=== PATIENT | female | born 1990 | race Caucasian/White ===

== ENCOUNTER 2016-12-14 18:52 | Emergency (ER) | payer BC ==
[2016-12-14 19:07] VITALS: BP 137/74
[2016-12-14] MEDS ORDERED: GI Cocktail Oral Solution 30 ML PO ONE (19:34)
[2016-12-14 20:12] LABS: CHLORIDE,CL 103 mmol/L (101-111); SODIUM,NA 138 mmol/L (135-145)
--- NOTE | 2016-12-14 20:29 | EDM.PDOC ---
ED HPI GI/ABDOMINAL - General Chief Complaint: Chest Pain Stated Complaint: CHEST PAIN Time Seen by Provider: 12/14/16 19:25 Source of Information: Reports: Patient History Limitations: Reports: No limitations - History of Present Illness INITIAL COMMENTS - FREE TEXT/NARRATIVE: c/o right lower breast tenderness and epigastric discomfort. Notes hx acid reflux. Prescribed 2 weeks of Omeprazole and sx resolved has been increasing past week with pressure , denies burning. No SOB. LMP one week ago. Quality: Reports: fullness, stabbing. Denies: radiating - Related Data Allergies/ADRs: Allergies Allergy/AdvReac Type Severity Reaction Status Date / Time No Known Allergies Allergy Verified 12/14/16 19:19 Home Meds: Home Meds . [No Known Home Meds] 08/16/15 [History] Past Medical History - Past Health History Medical/Surgical History: Denies Medical/Surgical History - Past Surgical History Female Surgical History: Reports: Cervical conization Social & Family History - Tobacco Use Smoking Status *Q: Never Smoker Second Hand Smoke Exposure: Yes - Caffeine Use Caffeine Use: Reports: None - Alcohol Use Days Per Week of Alcohol Use: 1 Number of Drinks Per Day: 3 Total Drinks Per Week: 3 Date of Last Drink: 12/13/16 - Recreational Drug Use Recreational Drug Use: No ED ROS GENERAL - Review of Systems Review Of Systems: See Below Constitutional: Reports: no symptoms HEENT: Reports: No symptoms Respiratory: Reports: no symptoms Cardiovascular: Reports: No symptoms. Denies: Dyspnea on exertion, Edema, Lightheadedness GI/Abdominal: Reports: Abdominal pain (epigastric) Musculoskeletal: Reports: no symptoms Neurological: Reports: no symptoms Psychiatric: Reports: Anxiety ED EXAM, GI/ABD - Physical Exam Exam: See Below Exam Limited By: No limitations General Appearance: alert, anxious Eyes: bilateral: EOMI Ears: normal external exam Nose: normal inspection Throat/Mouth: Normal inspection Head: atraumatic, normocephalic Neck: normal inspection, non-tender Respiratory/Chest: no respiratory distress, lungs clear, normal breath sounds, other (mild tenderness below right breast at braline, few fibroxystic type densities at underwire line. ) Cardiovascular: normal peripheral pulses, regular rate, rhythm GI/Abdominal: normal bowel sounds, soft, tenderness (mid epigastric). No: Donnelly's sign Back Exam: full range of motion Extremities: normal inspection Neurological: alert, oriented Skin Exam: Warm, Dry, Intact, Normal color Course - Vital Signs Last Recorded V/S: Last Vital Signs Temp 96.2 F 12/14/16 19:02 Pulse 93 12/14/16 19:02 Resp 17 12/14/16 19:02 BP 137/74 12/14/16 19:02 Pulse Ox 100 12/14/16 19:02 - Orders/Labs/Meds Labs: Laboratory Tests 12/14/16 12/14/16 12/14/16 Range/Units 19:07 19:07 19:45 WBC 6.2 (5.0-10.0) 10^3/uL RBC 4.16 L (4.2-5.4) 10^6/uL Hgb 12.8 (12.0-16.0) g/dL Hct 38.3 (37.0-47.0) % MCV 92.1 (80-100) fL MCH 30.8 (27.0-34.0) pg MCHC 33.4 (33.0-35.0) g/dL Plt Count 237 (150-450) 10^3/uL Neut % (Auto) 48.0 (42.2-75.2) % Lymph % (Auto) 41.0 (20.5-50.1) % [place] % (Auto) 9.2 H (2-8) % Eos % (Auto) 1.3 (1.0-3.0) % Baso % (Auto) 0.5 (0.0-1.0) % Sodium (135-145) mmol/L Potassium (3.6-5.0) mmol/L Chloride (101-111) mmol/L Carbon Dioxide (21.0-31.0) mmol/L Anion Gap BUN (7-18) mg/dL Creatinine (0.6-1.3) mg/dL Est Cr Clr Drug Dosing mL/min Estimated GFR (MDRD) BUN/Creatinine Ratio Glucose (74-105) mg/dL Calcium (8.4-10.2) mg/dl Total Bilirubin (0.2-1.0) mg/dL AST (10-42) IU/L ALT (10-60) IU/L Alkaline Phosphatase (42-121) IU/L Total Protein (6.7-8.2) g/dl Albumin (3.2-5.5) g/dl Globulin Albumin/Globulin Ratio Amylase (28-100) U/L Lipase (22-51) U/L Urine Color Yellow (YELLOW) Urine Appearance Turbid (CLEAR) Urine pH 7.0 (5.0-9.0) Ur Specific [place] 1.025 (1.005-1.030) Urine Protein Negative (NEGATIVE) Urine Glucose (UA) Negative (NEGATIVE) Urine Ketones Negative (NEGATIVE) Urine Occult Blood Negative (NEGATIVE) Urine Nitrite Negative (NEGATIVE) Urine Bilirubin Negative (NEGATIVE) Urine Urobilinogen 1.0 (0.2-1.0) mg/dL Ur Leukocyte Esterase Negative (NEGATIVE) Urine RBC 0-5 /HPF Urine WBC 0-5 (0-5/HPF) /HPF Ur Epithelial Cells Few /HPF Amorphous Sediment Moderate H (0/HPF) /HPF Urine Bacteria Moderate H (0-FEW/HPF) /HPF Urine HCG, Qual Negative 12/14/16 Range/Units 19:45 WBC (5.0-10.0) 10^3/uL RBC (4.2-5.4) 10^6/uL Hgb (12.0-16.0) g/dL Hct (37.0-47.0) % MCV (80-100) fL MCH (27.0-34.0) pg MCHC (33.0-35.0) g/dL Plt Count (150-450) 10^3/uL Neut % (Auto) (42.2-75.2) % Lymph % (Auto) (20.5-50.1) % [place] % (Auto) (2-8) % Eos % (Auto) (1.0-3.0) % Baso % (Auto) (0.0-1.0) % Sodium 138 (135-145) mmol/L Potassium 3.6 (3.6-5.0) mmol/L Chloride 103 (101-111) mmol/L Carbon Dioxide 26.0 (21.0-31.0) mmol/L Anion Gap 12.6 BUN 11 (7-18) mg/dL Creatinine 0.6 (0.6-1.3) mg/dL Est Cr Clr Drug Dosing 134.59 mL/min Estimated GFR (MDRD) > 60 BUN/Creatinine Ratio 18.33 Glucose 103 (74-105) mg/dL Calcium 9.5 (8.4-10.2) mg/dl Total Bilirubin 0.4 (0.2-1.0) mg/dL AST 20 (10-42) IU/L ALT 13 (10-60) IU/L Alkaline Phosphatase 66 (42-121) IU/L Total Protein 6.9 (6.7-8.2) g/dl Albumin 4.0 (3.2-5.5) g/dl Globulin 2.9 Albumin/Globulin Ratio 1.38 Amylase 54 (28-100) U/L Lipase 31 (22-51) U/L Urine Color (YELLOW) Urine Appearance (CLEAR) Urine pH (5.0-9.0) Ur Specific [place] (1.005-1.030) Urine Protein (NEGATIVE) Urine Glucose (UA) (NEGATIVE) Urine Ketones (NEGATIVE) Urine Occult Blood (NEGATIVE) Urine Nitrite (NEGATIVE) Urine Bilirubin (NEGATIVE) Urine Urobilinogen (0.2-1.0) mg/dL Ur Leukocyte Esterase (NEGATIVE) Urine RBC /HPF Urine WBC (0-5/HPF) /HPF Ur Epithelial Cells /HPF Amorphous Sediment (0/HPF) /HPF Urine Bacteria (0-FEW/HPF) /HPF Urine HCG, Qual Meds: Medications Discontinued Medications Generic Name Dose Route Start Last Admin Trade Name Pepper PRN Reason Stop Dose Admin Al Hydroxide/Mg Hydroxide 30 ml 12/14/16 19:34 12/14/16 19:39 Gi Cocktail PO 12/14/16 19:35 30 ml ONETIME ONE Administration Departure - Departure Time of Disposition: 20:30 Disposition: Home, Self-Care 01 Condition: good Clinical Impression: Acid reflux Qualifiers: Esophagitis presence: esophagitis presence not specified Qualified Code(s): K21.9 - Gastro-esophageal reflux disease without esophagitis Instructions: Gastroesophageal Reflux Disease, Adult, [id number] Referrals: PCP,None [Primary Care Provider] - Forms: ED Department Discharge Additional Instructions: Resume omeprazole twice daily for one week then once daily clinic follow up on Monday if continued symptoms Tylenol for discomfort avoid ibuprofen bland diet avoid caffeine, alcohol and energy drinks
== END 2016-12-14 20:24 | disposition home or self-care (01) ==
LOC: DL.ED 18:52
DX: K21.9 Gastro-esophageal reflux disease without esophagitis (principal)
CPT/HCPCS: 36415; 80053; 81001; 81025; 82150; 83690; 85025; 99283; A9270

== ENCOUNTER 2017-10-26 17:53 | Emergency (ER) | payer BC ==
[2017-10-26 18:05] VITALS: BP 112/72
--- NOTE | 2017-10-26 18:52 | EDM.PDOC ---
Scribed by Amaris Lu 10/26/17 [id number] for Thomas Randhawa MD ED HPI GENERAL MEDICAL PROBLEM - General Chief Complaint: ENT Problem Stated Complaint: EAR PAIN [id number] Time Seen by Provider: 10/26/17 18:13 Source of Information: Reports: Patient, RN, RN Notes Reviewed History Limitations: Reports: No Limitations - History of Present Illness INITIAL COMMENTS - FREE TEXT/NARRATIVE: Patient complains of right ear pain x1 week. Yesterday the pain began in left ear as well, but not as bad as the right. Denies fever. Admits to headache at frontal head and to sinus pressure with post nasal drip. 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: Neurological History: Reports: Headaches, Chronic, Migraines - Past Surgical History GI Surgical History: Reports: Cholecystectomy Female Surgical History: Reports: Cervical Conization Social & Family History - Family History Family Medical History: Noncontributory - Tobacco Use Smoking Status *Q: Never Smoker Second Hand Smoke Exposure: Yes - Caffeine Use Caffeine Use: Reports: None - Alcohol Use Days Per Week of Alcohol Use: 1 Number of Drinks Per Day: 3 Total Drinks Per Week: 3 - Recreational Drug Use Recreational Drug Use: No ED ROS ENT - Review of Systems Review Of Systems: ROS reveals no pertinent complaints other than HPI. ED EXAM, ENT - Physical Exam Exam: See Below Exam Limited By: No Limitations General Appearance: Alert, WD/WN, No Apparent Distress Ears: Other (bilateral TMs with bulging with clear fluid. No erythema. No drainage with perforation right then left. ) Nose: Other (frontal and maxillary sinus/facial tenderness. Nasal mucosa inlamed with injected turbinates.) Mouth/Throat: Normal Oropharynx (except post nasal drip. ) Head: Atraumatic Neck: Other (no nuchal rigidity.) Respiratory/Chest: No Respiratory Distress, Lungs Clear, Normal Breath Sounds, No Accessory Muscle Use, Chest Non-Tender Cardiovascular: Normal Peripheral Pulses, Regular Rate, Rhythm, No Edema, No Gallop, No JVD, No Murmur, No Rub Neurological: Alert, Oriented, CN II-XII Intact, Normal Cognition, Normal Gait, Normal Reflexes, No Motor/Sensory Deficits Psychiatric: Normal Affect, Normal Mood Skin: Warm, Dry, Intact, Normal Color, No Rash Course - Vital Signs Last Recorded V/S: Last Vital Signs Temp 35.9 C 10/26/17 17:59 Pulse 80 10/26/17 17:59 Resp 14 10/26/17 17:59 BP 112/72 10/26/17 17:59 Pulse Ox Departure - Departure Time of Disposition: 18:17 Disposition: Home, Self-Care 01 Condition: Good Clinical Impression: Sinus headache Barotitis media Qualifiers: Encounter type: initial encounter Qualified Code(s): T70.0XXA - Otitic barotrauma, initial encounter Sinusitis Qualifiers: Sinusitis location: unspecified location Chronicity: acute Recurrence: non- recurrent Qualified Code(s): J01.90 - Acute sinusitis, unspecified - Discharge Information Instructions: Barotitis Media, Sinusitis, Adult, [id number], Sinus Headache, [id number] Referrals: Sendy Cuevas PA-C [Primary Care Provider] - Forms: ED Department Discharge Additional Instructions: RX: Augmentin 875mg. RX: Prednisone 20mg. RX: Theresa 5mg/325mg. * Do not drive while under the influence of this medication. Follow up in clinic in 3 to 4 days if not improving. I have read and agree with the documentation that has been completed regarding this visit. By signing this record, I attest that the documentation was completed in my physical presence and is an accurate record of the encounter.
== END 2017-10-26 18:30 | disposition home or self-care (01) ==
LOC: DL.ED 17:53
DX: T70.0XXA Otitic barotrauma, initial encounter (principal); J01.90 Acute sinusitis, unspecified; Z79.899 Other long term (current) drug therapy
CPT/HCPCS: 99283

== ENCOUNTER 2018-04-19 20:38 | Emergency (ER) | payer BC ==
[2018-04-19 21:02] VITALS: BP 122/69
[2018-04-19] MEDS ORDERED: Sodium Chloride 0.9% 10 ML Syringe FLUSH PRN (21:14)
[2018-04-19 21:38] LABS: ANION GAP 10.7; CHLORIDE,CL 104 mmol/L (101-111); SODIUM,NA 136 mmol/L (135-145)
[2018-04-19] MEDS ORDERED: GI Cocktail Oral Solution 30 ML PO ONE (22:33)
--- NOTE | 2018-04-19 23:24 | EDM.PDOC ---
ED HPI GENERAL MEDICAL PROBLEM - General Chief Complaint: Chest Pain Stated Complaint: [id number] CHEST PAINS SOB Time Seen by Provider: 04/19/18 22:27 Source of Information: Reports: Patient, Family, RN, RN Notes Reviewed History Limitations: Reports: No Limitations - History of Present Illness INITIAL COMMENTS - FREE TEXT/NARRATIVE: Pt to ER with c/o midsternal chest pain that wraps around into the lateral chest. She states this began 3-4 weeks ago and has gotten worse today. She states she does a lot of heavy lifting at work. SHe admits to increased belching recently. Denies cardiac history, denies SOB, N/V. Onset: Gradual Left Chest Pain Score (Numeric/FACES): 5 - Related Data Allergies Allergy/AdvReac Type Severity Reaction Status Date / Time No Known Allergies Allergy Verified 04/19/18 21:35 Home Meds: Home Meds Norgestimate-Ethinyl Estradiol [Previfem Tablet] 1 tab PO DAILY 03/27/17 [ History] Past Medical History - Past Health History Medical/Surgical History: Denies Medical/Surgical History Gastrointestinal History: Reports: GERD [employer] History: Reports: Neurological History: Reports: Headaches, Chronic, Migraines - Past Surgical History GI Surgical History: Reports: Cholecystectomy Female Surgical History: Reports: Cervical Conization Social & Family History - Family History Family Medical History: Noncontributory - Tobacco Use Smoking Status *Q: Never Smoker Second Hand Smoke Exposure: No - Caffeine Use Caffeine Use: Reports: Soda - Recreational Drug Use Recreational Drug Use: No ED ROS GENERAL - Review of Systems Review Of Systems: ROS reveals no pertinent complaints other than HPI. ED EXAM, GENERAL - Physical Exam Exam: See Below Exam Limited By: No Limitations General Appearance: Alert, WD/WN, No Apparent Distress Eye Exam: Bilateral Eye: EOMI, Normal Inspection Ears: Normal External Exam, Hearing Grossly Normal Nose: Normal Inspection Throat/Mouth: Normal Inspection, Normal Voice, No Airway Compromise Head: Atraumatic, Normocephalic Neck: Normal Inspection Respiratory/Chest: No Respiratory Distress, Lungs Clear, Normal Breath Sounds, No Accessory Muscle Use. No: Chest Non-Tender (chest tender to touch in areas) Cardiovascular: Normal Peripheral Pulses, Regular Rate, Rhythm, No Edema, No Gallop, No JVD, No Murmur, No Rub Peripheral Pulses: 2+: Radial (L), Radial (R) GI/Abdominal: Normal Bowel Sounds, Soft, Non-Tender (Female) Exam: Deferred Rectal (Female) Exam: Deferred Back Exam: Normal Inspection, Full Range of Motion Extremities: Normal Inspection, Normal Range of Motion, Non-Tender, No Pedal Edema, Normal Capillary Refill Neurological: Alert, Oriented, CN II-XII Intact, Normal Cognition, Normal Gait, Normal Reflexes, No Motor/Sensory Deficits Psychiatric: Normal Affect, Normal Mood Skin Exam: Warm, Dry, Intact, Normal Color, No Rash Lymphatic: No Adenopathy EKG INTERPRETATION EKG Date: 04/21/18 Time: 20:55 Rhythm: NSR Rate (Beats/Min): 72 [place]: Normal P-Wave: Present QRS: Normal ST-T: Normal QT: Normal Comparison: NA - No Prior EKG Course - Vital Signs Last Recorded V/S: Last Vital Signs Temp 98.0 F 04/19/18 20:59 Pulse 68 04/19/18 20:59 Resp 16 04/19/18 20:59 BP 122/69 04/19/18 20:59 Pulse Ox 100 04/19/18 20:59 - Orders/Labs/Meds Labs: Laboratory Tests 04/19/18 04/19/18 04/19/18 Range/Units 21:15 21:15 21:20 WBC 7.2 (5.0-10.0) 10^3/uL RBC 3.74 L (4.2-5.4) 10^6/uL Hgb 11.9 L (12.0-16.0) g/dL Hct 34.9 L (37.0-47.0) % MCV 93.3 (80-100) fL MCH 31.8 (27.0-34.0) pg MCHC 34.1 (33.0-35.0) g/dL Plt Count 259 (150-450) 10^3/uL Neut % (Auto) 56.3 (42.2-75.2) % Lymph % (Auto) 31.7 (20.5-50.1) % [place] % (Auto) 10.6 H (2-8) % Eos % (Auto) 1.1 (1.0-3.0) % Baso % (Auto) 0.3 (0.0-1.0) % Sodium 136 (135-145) mmol/L Potassium 3.7 (3.6-5.0) mmol/L Chloride 104 (101-111) mmol/L Carbon Dioxide 25.0 (21.0-31.0) mmol/L Anion Gap 10.7 BUN 8 (7-18) mg/dL Creatinine 0.7 (0.6-1.3) mg/dL Est Cr Clr Drug Dosing 122.09 mL/min Estimated GFR (MDRD) > 60 BUN/Creatinine Ratio 11.42 Glucose TNP Calcium 9.4 (8.4-10.2) mg/dl Total Bilirubin 0.7 (0.2-1.0) mg/dL AST 24 (10-42) IU/L ALT 17 (10-60) IU/L Alkaline Phosphatase 49 (42-121) IU/L Troponin I < 0.02 (0.00-0.02) ng/ml Total Protein 6.7 (6.7-8.2) g/dl Albumin 4.1 (3.2-5.5) g/dl Globulin 2.6 Albumin/Globulin Ratio 1.58 Urine Color (YELLOW) Urine Appearance (CLEAR) Urine pH (5.0-9.0) Ur Specific [place] (1.005-1.030) Urine Protein (NEGATIVE) Urine Glucose (UA) (NEGATIVE) Urine Ketones (NEGATIVE) Urine Occult Blood (NEGATIVE) Urine Nitrite (NEGATIVE) Urine Bilirubin (NEGATIVE) Urine Urobilinogen (0.2-1.0) mg/dL Ur Leukocyte Esterase (NEGATIVE) Urine RBC /HPF Urine WBC (0-5/HPF) /HPF Ur Epithelial Cells /HPF Urine Bacteria (0-FEW/HPF) /HPF Urine HCG, Qual Negative 04/19/18 Range/Units 21:21 WBC (5.0-10.0) 10^3/uL RBC (4.2-5.4) 10^6/uL Hgb (12.0-16.0) g/dL Hct (37.0-47.0) % MCV (80-100) fL MCH (27.0-34.0) pg MCHC (33.0-35.0) g/dL Plt Count (150-450) 10^3/uL Neut % (Auto) (42.2-75.2) % Lymph % (Auto) (20.5-50.1) % [place] % (Auto) (2-8) % Eos % (Auto) (1.0-3.0) % Baso % (Auto) (0.0-1.0) % Sodium (135-145) mmol/L Potassium (3.6-5.0) mmol/L Chloride (101-111) mmol/L Carbon Dioxide (21.0-31.0) mmol/L Anion Gap BUN (7-18) mg/dL Creatinine (0.6-1.3) mg/dL Est Cr Clr Drug Dosing mL/min Estimated GFR (MDRD) BUN/Creatinine Ratio Glucose Calcium (8.4-10.2) mg/dl Total Bilirubin (0.2-1.0) mg/dL AST (10-42) IU/L ALT (10-60) IU/L Alkaline Phosphatase (42-121) IU/L Troponin I (0.00-0.02) ng/ml Total Protein (6.7-8.2) g/dl Albumin (3.2-5.5) g/dl Globulin Albumin/Globulin Ratio Urine Color Yellow (YELLOW) Urine Appearance Clear (CLEAR) Urine pH 6.0 (5.0-9.0) Ur Specific [place] 1.025 (1.005-1.030) Urine Protein Negative (NEGATIVE) Urine Glucose (UA) Negative (NEGATIVE) Urine Ketones Trace H (NEGATIVE) Urine Occult Blood Negative (NEGATIVE) Urine Nitrite Negative (NEGATIVE) Urine Bilirubin Negative (NEGATIVE) Urine Urobilinogen 0.2 (0.2-1.0) mg/dL Ur Leukocyte Esterase Negative (NEGATIVE) Urine RBC Not seen /HPF Urine WBC 0-5 (0-5/HPF) /HPF Ur Epithelial Cells Few /HPF Urine Bacteria Rare (0-FEW/HPF) /HPF Urine HCG, Qual Meds: Medications Discontinued Medications Generic Name Dose Route Start Last Admin Trade Name Freq PRN Reason Stop Dose Admin Al Hydroxide/Mg Hydroxide 30 ml 04/19/18 22:33 04/19/18 22:39 Gi Cocktail PO 04/19/18 22:34 30 ml ONETIME ONE Administration Sodium Chloride 10 ml 04/19/18 21:14 04/19/18 21:22 Saline Flush FLUSH 10 ml ASDIRECTED PRN Administration Keep Vein Open - Radiology Interpretation Free Text/Narrative:: Chest xray: No acute cardiopulmonary process See rad report Departure - Departure Time of Disposition: 23:22 Disposition: Home, Self-Care 01 Condition: Fair Clinical Impression: Nonspecific chest pain Instructions: Food Choices for Gastroesophageal Reflux Disease, Adult, Easy-to- Read, Food Choices for Gastroesophageal Reflux Disease, Adult, Chest Wall Pain, [id number], Nonspecific Chest Pain, [id number], Gastroesophageal Reflux Disease, Adult, [id number] Referrals: Maria R Rangel G[employer]ER [Ordering Only Provider] - Forms: ED Department Discharge Additional Instructions: Try Gas X over the counter May use Tylenol and/or ibuprofen as directed for pain Follow up with your primary care facility
== END 2018-04-19 23:31 | disposition home or self-care (01) ==
LOC: DL.ED 20:38
DX: R07.9 Chest pain, unspecified (principal); Z79.899 Other long term (current) drug therapy
CPT/HCPCS: 36415; 71046; 80053; 81001; 81025; 84484; 85025; 93005; 99285; A9270; J7050

== ENCOUNTER 2018-06-09 12:16 | Emergency (ER) | payer BC ==
[2018-06-09 14:09] LABS: ANION GAP 7.6; CHLORIDE,CL 106 mmol/L (101-111); SODIUM,NA 137 mmol/L (135-145)
--- NOTE | 2018-06-09 15:35 | EDM.PDOC ---
Scribed by Amaris Lu 06/09/18 1535 for Amadeo Raygoza PA ED HPI GENERAL MEDICAL PROBLEM - General Chief Complaint: Abdominal Pain Stated Complaint: CRAMPING AND BLOATING Time Seen by Provider: 06/09/18 13:28 Source of Information: Reports: Patient, RN, RN Notes Reviewed History Limitations: Reports: No Limitations - History of Present Illness INITIAL COMMENTS - FREE TEXT/NARRATIVE: Patient is a 28-year-old female with lower abdominal pain and cramping. She has frequent urination. This started on but getting worse. Two weeks until her menstrual cycle. She has had previous UTIs with different symptoms. 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 Pelvic Pain Score (Numeric/FACES): 5 - Related Data Allergies Allergy/AdvReac Type Severity Reaction Status Date / Time No Known Allergies Allergy Verified 04/19/18 21:35 Home Meds: Home Meds Norgestimate-Ethinyl Estradiol [Previfem Tablet] 1 tab PO DAILY 03/27/17 [ History] Esomeprazole [NexIUM] 40 mg PO DAILY 06/09/18 [History] Past Medical History - Past Health History Medical/Surgical History: Denies Medical/Surgical History Gastrointestinal History: Reports: 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 ED EXAM, RENAL/ - Physical Exam Exam: See Below Exam Limited By: No Limitations General Appearance: Alert, WD/WN, No Apparent Distress Eye Exam: Bilateral Eye: EOMI, Normal Inspection, PERRL Ears: Normal External Exam, Normal Canal, Hearing Grossly Normal, Normal TMs Nose: Normal Inspection, Normal Mucosa, No Blood Throat/Mouth: Normal Inspection, Normal Lips, Normal Teeth, Normal Gums, Normal Oropharynx, Normal Voice, No Airway Compromise Head: Atraumatic, Normocephalic Neck: Normal Inspection, Supple, Non-Tender, Full Range of Motion Respiratory/Chest: No Respiratory Distress, Lungs Clear, Normal Breath Sounds, No Accessory Muscle Use, Chest Non-Tender Cardiovascular: Normal Peripheral Pulses, Regular Rate, Rhythm, No Edema, No Gallop, No JVD, No Murmur, No Rub GI/Abdominal: Other (lower abdominal tenderness to palpation. Increased right lower quadrant, periumbilical) (Female) Exam: Deferred Rectal (Female) Exam: Deferred Back Exam: Normal Inspection, Full Range of Motion, NT Extremities: Normal Inspection, Normal Range of Motion, Non-Tender, Normal Capillary Refill, No Pedal Edema Neurological: Alert, Oriented, CN II-XII Intact, Normal Cognition, Normal Gait, Normal Reflexes, No Motor/Sensory Deficits Psychiatric: Normal Affect, Normal Mood Skin Exam: Warm, Dry, Intact, Normal Color, No Rash Lymphatic: No Adenopathy Course - Vital Signs Last Recorded V/S: Last Vital Signs Temp 36.7 C 06/09/18 12:44 Pulse 74 06/09/18 12:44 Resp 16 06/09/18 12:44 BP 109/62 06/09/18 12:44 Pulse Ox 100 06/09/18 12:44 - Orders/Labs/Meds Orders: Active Orders 24 hr Category Date Time Status Pelvis Non OB Comp [US] Urgent Exams 06/09/18 14:46 Ordered HCG QUALITATIVE,URINE [URCHEM] Stat Lab 06/09/18 12:38 Ordered Labs: Laboratory Tests 06/09/18 06/09/18 06/09/18 Range/Units 12:38 12:38 13:44 WBC 5.5 (5.0-10.0) 10^3/uL RBC 3.93 L (4.2-5.4) 10^6/uL Hgb 12.3 (12.0-16.0) g/dL Hct 36.7 L (37.0-47.0) % MCV 93.4 (80-100) fL MCH 31.3 (27.0-34.0) pg MCHC 33.5 (33.0-35.0) g/dL Plt Count 216 (150-450) 10^3/uL Neut % (Auto) 57.2 (42.2-75.2) % Lymph % (Auto) 30.1 (20.5-50.1) % Darke % (Auto) 10.9 H (2-8) % Eos % (Auto) 1.4 (1.0-3.0) % Baso % (Auto) 0.4 (0.0-1.0) % Sodium (135-145) mmol/L Potassium (3.6-5.0) mmol/L Chloride (101-111) mmol/L Carbon Dioxide (21.0-31.0) mmol/L Anion Gap BUN (7-18) mg/dL Creatinine (0.6-1.3) mg/dL Est Cr Clr Drug Dosing mL/min Estimated GFR (MDRD) BUN/Creatinine Ratio Glucose (74-105) mg/dL Calcium (8.4-10.2) mg/dl Total Bilirubin (0.2-1.0) mg/dL AST (10-42) IU/L ALT (10-60) IU/L Alkaline Phosphatase (42-121) IU/L Total Protein (6.7-8.2) g/dl Albumin (3.2-5.5) g/dl Globulin Albumin/Globulin Ratio Urine Color Yellow (YELLOW) Urine Appearance Cloudy (CLEAR) Urine pH 8.5 (5.0-9.0) Ur Specific [place] 1.015 (1.005-1.030) Urine Protein Negative (NEGATIVE) Urine Glucose (UA) Negative (NEGATIVE) Urine Ketones Negative (NEGATIVE) Urine Occult Blood Negative (NEGATIVE) Urine Nitrite Negative (NEGATIVE) Urine Bilirubin Negative (NEGATIVE) Urine Urobilinogen 0.2 (0.2-1.0) mg/dL Ur Leukocyte Esterase Trace H (NEGATIVE) Urine RBC Not seen /HPF Urine WBC 0-5 (0-5/HPF) /HPF Ur Epithelial Cells Moderate H /HPF Amorphous Sediment Many H (0/HPF) /HPF Urine Bacteria Few (0-FEW/HPF) /HPF Urine Mucus Rare /LPF Urine HCG, Qual Negative 06/09/18 Range/Units 13:44 WBC (5.0-10.0) 10^3/uL RBC (4.2-5.4) 10^6/uL Hgb (12.0-16.0) g/dL Hct (37.0-47.0) % MCV (80-100) fL MCH (27.0-34.0) pg MCHC (33.0-35.0) g/dL Plt Count (150-450) 10^3/uL Neut % (Auto) (42.2-75.2) % Lymph % (Auto) (20.5-50.1) % Darke % (Auto) (2-8) % Eos % (Auto) (1.0-3.0) % Baso % (Auto) (0.0-1.0) % Sodium 137 (135-145) mmol/L Potassium 3.6 (3.6-5.0) mmol/L Chloride 106 (101-111) mmol/L Carbon Dioxide 27.0 (21.0-31.0) mmol/L Anion Gap 7.6 BUN 9 (7-18) mg/dL Creatinine 0.6 (0.6-1.3) mg/dL Est Cr Clr Drug Dosing 147.53 mL/min Estimated GFR (MDRD) > 60 BUN/Creatinine Ratio 15.00 Glucose 85 (74-105) mg/dL Calcium 8.7 (8.4-10.2) mg/dl Total Bilirubin 0.8 (0.2-1.0) mg/dL AST 20 (10-42) IU/L ALT 14 (10-60) IU/L Alkaline Phosphatase 47 (42-121) IU/L Total Protein 6.6 L (6.7-8.2) g/dl Albumin 3.9 (3.2-5.5) g/dl Globulin 2.7 Albumin/Globulin Ratio 1.44 Urine Color (YELLOW) Urine Appearance (CLEAR) Urine pH (5.0-9.0) Ur Specific [place] (1.005-1.030) Urine Protein (NEGATIVE) Urine Glucose (UA) (NEGATIVE) Urine Ketones (NEGATIVE) Urine Occult Blood (NEGATIVE) Urine Nitrite (NEGATIVE) Urine Bilirubin (NEGATIVE) Urine Urobilinogen (0.2-1.0) mg/dL Ur Leukocyte Esterase (NEGATIVE) Urine RBC /HPF Urine WBC (0-5/HPF) /HPF Ur Epithelial Cells /HPF Amorphous Sediment (0/HPF) /HPF Urine Bacteria (0-FEW/HPF) /HPF Urine Mucus /LPF Urine HCG, Qual Departure - Departure Time of Disposition: 15:31 Disposition: Home, Self-Care 01 Condition: Fair Clinical Impression: Right ovarian cyst - Discharge Information *PRESCRIPTION DRUG MONITORING PROGRAM REVIEWED*: Not Applicable *COPY OF PRESCRIPTION DRUG MONITORING REPORT IN PATIENT BINTA: Not Applicable Instructions: Ovarian Cyst, [id number] Forms: ED Department Discharge Care Plan Goals: The patient was advised of the examination, lab and ultrasound results during the visit. The patient was discharged with a script for [place] () to take 1 by mouth every 6 hours as needed for pain. If the patient has any additional symptoms or concerns, the patient should follow-up with her primary care facility or return to the emergency department. - My Orders Last 24 Hours: My Active Orders 06/09/18 12:38 HCG QUALITATIVE,URINE [URCHEM] Stat 06/09/18 14:46 Pelvis Non OB Comp [US] Urgent - Assessment/Plan Last 24 Hours: My Active Orders 06/09/18 12:38 HCG QUALITATIVE,URINE [URCHEM] Stat 06/09/18 14:46 Pelvis Non OB Comp [US] Urgent I have read and agree with the documentation that has been completed regarding this visit. By signing this record, I attest that the documentation was completed in my physical presence and is an accurate record of the encounter.
[2018-06-09 15:46] VITALS: BP 119/65
== END 2018-06-09 15:44 | disposition home or self-care (01) ==
LOC: DL.ED 12:16
DX: N83.201 Unspecified ovarian cyst, right side (principal)
CPT/HCPCS: 36415; 76830; 80053; 81001; 81025; 85025; 99284

== ENCOUNTER 2020-12-18 07:31 | Emergency (ER) | payer BC ==
[2020-12-18 07:54] VITALS: BP 99/62; PULSE 102
--- NOTE | 2020-12-18 08:04 | EDM.PDOC ---
ED HPI GENERAL MEDICAL PROBLEM - General Chief Complaint: Headache Stated Complaint: MIGRAINE Time Seen by Provider: 12/18/20 08:04 Source of Information: Reports: Patient, Old Records, RN, RN Notes Reviewed History Limitations: Reports: No Limitations - History of Present Illness INITIAL COMMENTS - FREE TEXT/NARRATIVE: Pt presents to ER with c/o three days duration of a generalized headache. Pt came to the hospital requesting a MRI of her brain in radiology, where it was explained to her that an order from a physician it required. Pt then checked into the ER to obtain her MRI. The triage nurse explained that non-emergent MRI's are not obtained through the emergency department. Pt states her PCP is not available, and she cannot get in with her clinic until next week, so she would like to be evaluated in the ER. Pt reports 3 days of constant generalized pounding headache, with sharp jabs, and "tightness" from the neck to the forehead. Nothing alleviates or aggravates the headache/pain. Pt rates the current headache pain 7/10. She reports a three year history of right sided migraines, treated with Imitrex. She has never had brain imaging, or a neurology evaluation, stating that her nurse practitioner did not feel that further studies or referral were necessary in her case. The pt is anxious that something more ominous could be the cause of her headaches, and is not comfortable that a more thorough work up has not been completed. She denies nausea, vomiting, or photophobia. Denies blurry vision, or any visual changes. Denies mastoid pain, swelling, redness, or increased warmth. Denies ear pain, hearing change, or drainage. Denies Hx of head injury or neck injury. Denies slurred speech, or difficulties with speech or swallowing. Denies seizures, or altered/loss of sense of taste or smell. Onset Date: 12/15/20 Duration: Constant Location: Reports: Head, Neck Quality: Reports: Ache, Pressure, Sharp, Stabbing, Other (Pounding) Severity: Severe Associated Symptoms: Reports: No Other Symptoms Head Pain Score (Numeric/FACES): 7 - Related Data Allergies Allergy/AdvReac Type Severity Reaction Status Date / Time No Known Allergies Allergy Verified 12/18/20 07:55 Home Meds: Home Meds hydrOXYzine HCL [Atarax] 50 mg PO ASDIRECTED PRN 09/02/20 [History] SUMAtriptan [Imitrex] 100 mg PO ASDIRECTED 12/18/20 [History] Past Medical History - Past Health History Medical/Surgical History: Denies Medical/Surgical History Gastrointestinal History: Reports: 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: Neurological History: Reports: Headaches, Chronic, Migraines - Past Surgical History GI Surgical History: Reports: Cholecystectomy Female Surgical History: Reports: Cervical Conization Social & Family History - Family History Family Medical History: No Pertinent Family History - Tobacco Use Tobacco Use Status *Q: Never Tobacco User - Caffeine Use Caffeine Use: Reports: Other - Recreational Drug Use Recreational Drug Use: No - Living Situation & Occupation Living situation: Reports: , with Family Occupation: Employed ED ROS GENERAL - Review of Systems Review Of Systems: Comprehensive ROS is negative, except as noted in HPI. - Physical Exam Exam: See Below Exam Limited By: No Limitations General Appearance: Alert, WD/WN, No Apparent Distress, Anxious Eye Exam: Bilateral Eye: EOMI, Normal Inspection, PERRL Ears: Normal External Exam, Normal Canal, Hearing Grossly Normal, Normal TMs Nose: Normal Inspection, Normal Mucosa, No Blood Throat/Mouth: Normal Inspection, Normal Lips, Normal Teeth, Normal Gums, Normal Oropharynx, Normal Voice, No Airway Compromise Head Exam: Atraumatic, Normocephalic Neck: Normal Inspection, Supple, Non-Tender, Full Range of Motion. No: Carotid Bruit, Lymphadenopathy (L), Lymphadenopathy (R) Respiratory/Chest: No Respiratory Distress, Lungs Clear, Normal Breath Sounds, No Accessory Muscle Use, Chest Non-Tender Cardiovascular: Normal Peripheral Pulses, Regular Rate, Rhythm, No Edema, No Gallop, No JVD, No Murmur, No Rub Neuro Exam (Abbreviated): Alert, Oriented, CN II-XII Intact, Normal Cognition, Normal Gait, No Motor/Sensory Deficits Back Exam: Normal Inspection Extremities: Normal Inspection Psychiatric: Normal Affect, Anxious Skin Exam: Warm, Dry, Intact, Normal Color, No Rash Course - Vital Signs Last Recorded V/S: Last Vital Signs Temp 98.7 F 12/18/20 07:50 Pulse 102 H 12/18/20 07:50 Resp 14 12/18/20 07:50 BP 99/62 12/18/20 07:50 Pulse Ox 99 12/18/20 07:50 - Radiology Interpretation Free Text/Narrative:: [facility] Final Radiology Report Call: [phone] assistance Online chat: [email or web address] Name: SAMUEL KEATING Age: 30Years F Date: 12/18/2020 SSN: -- : [id number] Study: CT HEAD WO CONT Requesting Physician: VEDA PRASAD Images: 141 Addl Studies: Provided Clinical History: Headache w/increasing freq. and intensity Contrast: Without Contrast Medium: Contrast Amount: Contrast Method: Page 1 of 2 PROCEDURE INFORMATION: Exam: CT Head Without Contrast Exam date and time: 12/18/2020 9:03 AM Age: 30 years old Clinical indication: Pain; Headache not specified; Additional info: Headache w/increasing freq. And intensity TECHNIQUE: Imaging protocol: Computed tomography of the head without contrast. Radiation optimization: All CT scans at this facility use at least one of these dose optimization techniques: automated exposure control; mA and/or kV adjustment per patient size (includes targeted exams where dose is matched to clinical indication); or iterative reconstruction. COMPARISON: No relevant prior studies available. FINDINGS: Brain: Normal. No hemorrhage. Unremarkable white matter. No mass effect. Cerebral ventricles: No ventriculomegaly. Bones/joints: Unremarkable. No acute fracture. Paranasal sinuses: Visualized sinuses are unremarkable. No fluid levels. Mastoid air cells: Visualized mastoid air cells are well aerated. Soft tissues: Unremarkable. IMPRESSION: No CT evidence for acute intracranial abnormality. Thank you for allowing us to participate in the care of your patient. Dictated and Authenticated by: Zeeshan Yoo MD SAMUEL KEATING | Final Radiology Report CONFIDENTIALITY STATEMENT This report is intended only for use by the referring physician, and only in accordance with law. If you received this in error, call [phone]. Page 2 of 2 12/18/2020 9:27 AM Central Time ([place] & [place]) [facility] [place] [facility] Final Radiology Report Call: [phone] assistance Online chat: [email or web address] Name: SAMUEL KEATING Age: 30Years F Date: 12/18/2020 SSN: -- : [id number] Study: CT MAX FACIAL SINUS WO CONT Requesting Physician: VEDA PRASAD Images: 215 Addl Studies: Provided Clinical History: Headache w/increasing freq. and intensity Contrast: Without Contrast Medium: Contrast Amount: Contrast Method: Page 1 of 2 PROCEDURE INFORMATION: Exam: CT Maxillofacial Without Contrast Exam date and time: 12/18/2020 9:03 AM Age: 30 years old Clinical indication: Pain; Headache; Type not specified; Additional info: Headache w/increasing freq. And intensity TECHNIQUE: Imaging protocol: Computed tomography images of the face without contrast. Radiation optimization: All CT scans at this facility use at least one of these dose optimization techniques: automated exposure control; mA and/or kV adjustment per patient size (includes targeted exams where dose is matched to clinical indication); or iterative reconstruction. COMPARISON: No relevant prior studies available. FINDINGS: Orbital cavity: The globes appear grossly intact, and no definite intraorbital hematoma is identified. Bones/joints: The temporomandibular joints are normally aligned. No acute fracture is identified. The orbital floors and lamina papyracea are intact. The temporomandibular joints are normally aligned. There is mild rightward nasal septal deviation. Paranasal sinuses: Mild chronic mucosal disease involves the bilateral maxillary and left sphenoid sinuses. The paranasal sinuses and air cells are otherwise clear, without air- fluid level. The ostiomeatal units are patent. Mastoid air cells: The mastoid air cells are clear. The mastoid air cells are clear. Soft tissues: The soft tissues appear grossly unremarkable. IMPRESSION: Mild chronic paranasal sinus disease as described. SAMUEL KEATING | Final Radiology Report CONFIDENTIALITY STATEMENT This report is intended only for use by the referring physician, and only in accordance with law. If you received this in error, call [phone]. Page 2 of 2 Thank you for allowing us to participate in the care of your patient. Dictated and Authenticated by: Zeeshan Yoo MD 12/18/2020 9:30 AM Central Time ([place] & [place]) Departure - Departure Time of Disposition: 09:32 Disposition: Home, Self-Care 01 Condition: Good Clinical Impression: Acute intractable headache Qualifiers: Headache type: unspecified Qualified Code(s): R51.9 - Headache, unspecified Chronic sinusitis Qualifiers: Sinusitis location: ethmoidal Qualified Code(s): J32.2 - Chronic ethmoidal sinusitis - Discharge Information *PRESCRIPTION DRUG MONITORING PROGRAM REVIEWED*: No *COPY OF PRESCRIPTION DRUG MONITORING REPORT IN PATIENT BINTA: No Instructions: General Headache Without Cause, Sinusitis, Adult Forms: ED Department Discharge Additional Instructions: Rx: Doxycycline 100mg Rx: Dexamethasone 4mg Rx: Cyclobenzaprine 10mg Rx: Hydrocodone APAP 5mg/325mg Follow up in clinic next week as planned. Ask your doctor about a referral for headache evaluation if needed. Sepsis Event Note (ED) - Evaluation Sepsis Screening Result: No Definite Risk - Focused Exam Vital Signs: Vital Signs Temp Pulse Resp BP Pulse Ox 12/18/20 07:50 98.7 F 102 H 14 99/62 99
--- NOTE | 2020-12-18 09:27 | CT ---
PROCEDURE INFORMATION: Exam: CT Head Without Contrast Exam date and time: 12/18/2020 9:03 AM Age: 30 years old Clinical indication: Pain; Headache not specified; Additional info: Headache w/increasing freq. And intensity TECHNIQUE: Imaging protocol: Computed tomography of the head without contrast. Radiation optimization: All CT scans at this facility use at least one of these dose optimization techniques: automated exposure control; mA and/or kV adjustment per patient size (includes targeted exams where dose is matched to clinical indication); or iterative reconstruction. COMPARISON: No relevant prior studies available. FINDINGS: Brain: Normal. No hemorrhage. Unremarkable white matter. No mass effect. Cerebral ventricles: No ventriculomegaly. Bones/joints: Unremarkable. No acute fracture. Paranasal sinuses: Visualized sinuses are unremarkable. No fluid levels. Mastoid air cells: Visualized mastoid air cells are well aerated. Soft tissues: Unremarkable. IMPRESSION: No CT evidence for acute intracranial abnormality.
--- NOTE | 2020-12-18 09:31 | CT ---
PROCEDURE INFORMATION: Exam: CT Maxillofacial Without Contrast Exam date and time: 12/18/2020 9:03 AM Age: 30 years old Clinical indication: Pain; Headache; Type not specified; Additional info: Headache w/increasing freq. And intensity TECHNIQUE: Imaging protocol: Computed tomography images of the face without contrast. Radiation optimization: All CT scans at this facility use at least one of these dose optimization techniques: automated exposure control; mA and/or kV adjustment per patient size (includes targeted exams where dose is matched to clinical indication); or iterative reconstruction. COMPARISON: No relevant prior studies available. FINDINGS: Orbital cavity: The globes appear grossly intact, and no definite intraorbital hematoma is identified. Bones/joints: The temporomandibular joints are normally aligned. No acute fracture is identified. The orbital floors and lamina papyracea are intact. The temporomandibular joints are normally aligned. There is mild rightward nasal septal deviation. Paranasal sinuses: Mild chronic mucosal disease involves the bilateral maxillary and left sphenoid sinuses. The paranasal sinuses and air cells are otherwise clear, without air-fluid level. The ostiomeatal units are patent. Mastoid air cells: The mastoid air cells are clear. The mastoid air cells are clear. Soft tissues: The soft tissues appear grossly unremarkable. IMPRESSION: Mild chronic paranasal sinus disease as described.
== END 2020-12-18 09:52 | disposition home or self-care (01) ==
LOC: DL.ED 07:31
DX: J32.2 Chronic ethmoidal sinusitis (principal)
CPT/HCPCS: 70450; 70486; 99283; 99284-25

== ENCOUNTER 2021-03-05 13:04 | Emergency (ER) | payer BC ==
[2021-03-05 13:34] VITALS: BP 115/83; PULSE 75
[2021-03-05 14:40] LABS: ANION GAP 12.6 mEq/L (7-13); CHLORIDE,CL 103 mmol/L (98-107); SODIUM,NA 139 mmol/L (136-145)
--- NOTE | 2021-03-05 15:05 | CR ---
EXAMINATION: Chest 1V Frontal SEX: Female AGE: 31 years CLINICAL HISTORY: 31-year-old female chest pain. INDICATION: No acute new cardiopulmonary abnormality identified since 02 September 2020 comparison film. External panel monitor leads. Normal cardiac silhouette (size and configuration). No new pulmonary vascular congestion, cephalization of flow, alveolar edema or pleural effusion. No new parenchymal lung mass lesion or hilar lymphadenopathy. No alveolar infiltrate, atelectasis/collapse, or peripheral "groundglass" interstitial lung densities. No pneumothorax or pneumomediastinum. Midline tracheal bronchial airway unremarkable. No free subdiaphragmatic air. CONCLUSION: Negative exam. INTERPRETATION: 1. CONCLUSION:
[2021-03-05] MEDS ORDERED: GI Cocktail Oral Solution 30 ML PO ONE (15:12)
--- NOTE | 2021-03-05 15:36 | EDM.PDOC ---
ED HPI GENERAL MEDICAL PROBLEM - General Chief Complaint: Chest Pain Stated Complaint: [id number] SEVERE CHEST AND BACK PAIN - Related Data Allergies Allergy/AdvReac Type Severity Reaction Status Date / Time No Known Allergies Allergy Verified 03/05/21 13:38 Home Meds: Home Meds hydrOXYzine HCL [Atarax] 50 mg PO ASDIRECTED PRN 09/02/20 [History] SUMAtriptan [Imitrex] 100 mg PO ASDIRECTED 12/18/20 [History] Propranolol [Inderal LA] 60 mg PO DAILY 03/05/21 [History] Past Medical History - Past Health History Medical/Surgical History: Denies Medical/Surgical History Gastrointestinal History: Reports: 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: Neurological History: Reports: Headaches, Chronic, Migraines - Past Surgical History GI Surgical History: Reports: Cholecystectomy Female Surgical History: Reports: Cervical Conization Social & Family History - Family History Family Medical History: No Pertinent Family History - Tobacco Use Tobacco Use Status *Q: Never Tobacco User - Caffeine Use Caffeine Use: Reports: Other - Recreational Drug Use Recreational Drug Use: No - Living Situation & Occupation Living situation: Reports: , with Family Occupation: Employed Course - Vital Signs Last Recorded V/S: Last Vital Signs Temp 97.8 F 03/05/21 13:32 Pulse 75 03/05/21 13:32 Resp 16 03/05/21 13:32 BP 115/83 03/05/21 13:32 Pulse Ox 99 03/05/21 13:32 - Orders/Labs/Meds Orders: Active Orders 24 hr Category Date Time Status EKG Documentation Completion [RC] STAT Care 03/05/21 13:59 Active Labs: Laboratory Tests 03/05/21 03/05/21 03/05/21 Range/Units 13:11 13:11 14:08 WBC 7.0 (5.0-10.0) 10^3/uL RBC 3.98 L (4.2-5.4) 10^6/uL Hgb 12.7 (12.0-16.0) g/dL Hct 36.9 L (37.0-47.0) % MCV 92.7 (80-100) fL MCH 31.9 (27.0-34.0) pg MCHC 34.4 (33.0-35.0) g/dL Plt Count 284 (150-450) 10^3/uL Neut % (Auto) 64.0 (42.2-75.2) % Lymph % (Auto) 24.5 (20.5-50.1) % [place] % (Auto) 9.9 H (2-8) % Eos % (Auto) 1.3 (1.0-3.0) % Baso % (Auto) 0.3 (0.0-1.0) % Sodium (136-145) mmol/L Potassium (3.5-5.1) mmol/L Chloride (98-107) mmol/L Carbon Dioxide (21-32) mmol/L Anion Gap (7-13) mEq/L BUN (7-18) mg/dL Creatinine (0.55-1.02) mg/dL Est Cr Clr Drug Dosing mL/min Estimated GFR (MDRD) BUN/Creatinine Ratio (No establ ref range) Glucose (70-99) mg/dL Calcium (8.5-10.1) mg/dL Total Bilirubin (0.2-1.0) mg/dL AST (15-37) U/L ALT (14-59) U/L Alkaline Phosphatase (46-116) U/L Troponin I (0.000-0.056) ng/mL Total Protein (6.4-8.2) g/dL Albumin (3.4-5.0) g/dL Globulin Albumin/Globulin Ratio Urine Color Yellow (YELLOW) Urine Appearance Clear (CLEAR) Urine pH 7.0 (5.0-9.0) Ur Specific [place] 1.015 (1.005-1.030) Urine Protein Negative (NEGATIVE) Urine Glucose (UA) Negative (NEGATIVE) Urine Ketones Negative (NEGATIVE) Urine Occult Blood Negative (NEGATIVE) Urine Nitrite Negative (NEGATIVE) Urine Bilirubin Negative (NEGATIVE) Urine Urobilinogen 0.2 (0.2-1.0) mg/dL Ur Leukocyte Esterase Negative (NEGATIVE) Urine HCG, Qual Negative 03/05/21 Range/Units 14:08 WBC (5.0-10.0) 10^3/uL RBC (4.2-5.4) 10^6/uL Hgb (12.0-16.0) g/dL Hct (37.0-47.0) % MCV (80-100) fL MCH (27.0-34.0) pg MCHC (33.0-35.0) g/dL Plt Count (150-450) 10^3/uL Neut % (Auto) (42.2-75.2) % Lymph % (Auto) (20.5-50.1) % [place] % (Auto) (2-8) % Eos % (Auto) (1.0-3.0) % Baso % (Auto) (0.0-1.0) % Sodium 139 (136-145) mmol/L Potassium 3.6 (3.5-5.1) mmol/L Chloride 103 (98-107) mmol/L Carbon Dioxide 27 (21-32) mmol/L Anion Gap 12.6 (7-13) mEq/L BUN 12 (7-18) mg/dL Creatinine 0.72 (0.55-1.02) mg/dL Est Cr Clr Drug Dosing 124.67 mL/min Estimated GFR (MDRD) > 60 BUN/Creatinine Ratio 16.7 (No establ ref range) Glucose 94 (70-99) mg/dL Calcium 8.7 (8.5-10.1) mg/dL Total Bilirubin 0.5 (0.2-1.0) mg/dL AST 19 (15-37) U/L ALT 27 (14-59) U/L Alkaline Phosphatase 74 (46-116) U/L Troponin I < 0.017 (0.000-0.056) ng/mL Total Protein 6.8 (6.4-8.2) g/dL Albumin 3.7 (3.4-5.0) g/dL Globulin 3.1 Albumin/Globulin Ratio 1.2 Urine Color (YELLOW) Urine Appearance (CLEAR) Urine pH (5.0-9.0) Ur Specific [place] (1.005-1.030) Urine Protein (NEGATIVE) Urine Glucose (UA) (NEGATIVE) Urine Ketones (NEGATIVE) Urine Occult Blood (NEGATIVE) Urine Nitrite (NEGATIVE) Urine Bilirubin (NEGATIVE) Urine Urobilinogen (0.2-1.0) mg/dL Ur Leukocyte Esterase (NEGATIVE) Urine HCG, Qual Meds: Medications Discontinued Medications Generic Name Dose Route Start Last Admin Trade Name Freq PRN Reason Stop Dose Admin Al Hydroxide/Mg Hydroxide 30 ml 03/05/21 15:12 03/05/21 15:20 Gi Cocktail Oral Solution 30 Ml PO 03/05/21 15:13 30 ml ONETIME ONE Administration Departure - Departure Time of Disposition: 15:35 Disposition: Home, Self-Care 01 Reason for Transfer *Q: Other Condition: Good Clinical Impression: Nonspecific chest pain Acid reflux Qualifiers: Esophagitis presence: without esophagitis Qualified Code(s): K21.9 - Gastro- esophageal reflux disease without esophagitis Instructions: Food Choices for Gastroesophageal Reflux Disease, Adult, [id number], Gastroesophageal Reflux Disease, Adult, [id number], Nonspecific Chest Pain, Adult, [id number] Sepsis Event Note (ED) - Evaluation Sepsis Screening Result: No Definite Risk - Focused Exam Vital Signs: Vital Signs Temp Pulse Resp BP Pulse Ox 03/05/21 13:32 97.8 F 75 16 115/83 99 - My Orders Last 24 Hours: My Active Orders 03/05/21 13:59 EKG Documentation Completion [RC] STAT - Assessment/Plan Last 24 Hours: My Active Orders 03/05/21 13:59 EKG Documentation Completion [RC] STAT
--- NOTE | 2021-03-06 10:11 | EDM.PDOC ---
Scribed by Amaris Lu 03/05/21 1537 for Renee Osman NP ED HPI GENERAL MEDICAL PROBLEM - General Chief Complaint: Chest Pain Stated Complaint: [id number] SEVERE CHEST AND BACK PAIN Time Seen by Provider: 03/05/21 13:45 Source of Information: Reports: Patient, RN, RN Notes Reviewed History Limitations: Reports: No Limitations - History of Present Illness INITIAL COMMENTS - FREE TEXT/NARRATIVE: Patient is a 31-year-old female who presents to ER with chest pain into the back. This began on Monday evening, bad in the evenings. She has taken Advil, Pepto Bismol with no help. This is not specially after eating supper. Anxiety meds used without help. Onset: Gradual Duration: Constant Location: Reports: Back Quality: Reports: Ache Severity: Moderate Improves with: Reports: None Worsens with: Reports: None Associated Symptoms: Reports: No Other Symptoms - Related Data Allergies Allergy/AdvReac Type Severity Reaction Status Date / Time No Known Allergies Allergy Verified 03/05/21 13:38 Home Meds: Home Meds hydrOXYzine HCL [Atarax] 50 mg PO ASDIRECTED PRN 09/02/20 [History] SUMAtriptan [Imitrex] 100 mg PO ASDIRECTED 12/18/20 [History] Propranolol [Inderal LA] 60 mg PO DAILY 03/05/21 [History] Past Medical History - Past Health History Medical/Surgical History: Denies Medical/Surgical History HEENT History: Reports: Other (See Below) (migraine) 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: Neurological History: Reports: Headaches, Chronic, Migraines Psychiatric History: Reports: Anxiety - Past Surgical History GI Surgical History: Reports: Cholecystectomy Female Surgical History: Reports: Cervical Conization Social & Family History - Family History Family Medical History: No Pertinent Family History - Tobacco Use Tobacco Use Status *Q: Never Tobacco User - Caffeine Use Caffeine Use: Reports: Other - Recreational Drug Use Recreational Drug Use: No - Living Situation & Occupation Living situation: Reports: , with Family Occupation: Employed ED ROS GENERAL - Review of Systems Review Of Systems: Comprehensive ROS is negative, except as noted in HPI. ED EXAM, GENERAL - Physical Exam Exam: See Below Exam Limited By: No Limitations General Appearance: Alert, WD/WN, No Apparent Distress Eye Exam: Bilateral Eye: EOMI, Normal Inspection, PERRL Ears: Normal External Exam, Normal Canal, Hearing Grossly Normal, Normal TMs Nose: Normal Inspection, Normal Mucosa, No Blood Throat/Mouth: Normal Inspection, Normal Lips, Normal Teeth, Normal Gums, Normal Oropharynx, Normal Voice, No Airway Compromise Head: Atraumatic, Normocephalic Neck: Normal Inspection, Supple, Non-Tender, Full Range of Motion Respiratory/Chest: No Respiratory Distress, Lungs Clear, Normal Breath Sounds, No Accessory Muscle Use, Chest Non-Tender Cardiovascular: Normal Peripheral Pulses, Regular Rate, Rhythm, No Edema, No Gallop, No JVD, No Murmur, No Rub GI/Abdominal: Normal Bowel Sounds, Soft, Non-Tender, No Organomegaly, No Distention, No Abnormal Bruit, No Mass (Female) Exam: Deferred Rectal (Female) Exam: Deferred Back Exam: Normal Inspection, Full Range of Motion, NT Extremities: Normal Inspection, Normal Range of Motion, Non-Tender, Normal Capillary Refill, No Pedal Edema Neurological: Alert, Oriented, CN II-XII Intact, Normal Cognition, Normal Gait, Normal Reflexes, No Motor/Sensory Deficits Psychiatric: Normal Affect, Normal Mood Skin Exam: Warm, Dry, Intact, Normal Color, No Rash Lymphatic: No Adenopathy #1 Interpretation EKG Date: 03/05/21 Time: 13:33 Rhythm: Other (sinus rhythm) Rate (Beats/Min): 78 [place]: Normal P-Wave: Present QRS: Normal ST-T: Normal QT: Normal Course - Vital Signs Last Recorded V/S: Last Vital Signs Temp 97.8 F 03/05/21 13:32 Pulse 75 03/05/21 13:32 Resp 16 03/05/21 13:32 BP 115/83 03/05/21 13:32 Pulse Ox 99 03/05/21 13:32 - Orders/Labs/Meds Labs: Laboratory Tests 03/05/21 03/05/21 03/05/21 Range/Units 13:11 13:11 14:08 WBC 7.0 (5.0-10.0) 10^3/uL RBC 3.98 L (4.2-5.4) 10^6/uL Hgb 12.7 (12.0-16.0) g/dL Hct 36.9 L (37.0-47.0) % MCV 92.7 (80-100) fL MCH 31.9 (27.0-34.0) pg MCHC 34.4 (33.0-35.0) g/dL Plt Count 284 (150-450) 10^3/uL Neut % (Auto) 64.0 (42.2-75.2) % Lymph % (Auto) 24.5 (20.5-50.1) % [place] % (Auto) 9.9 H (2-8) % Eos % (Auto) 1.3 (1.0-3.0) % Baso % (Auto) 0.3 (0.0-1.0) % Sodium (136-145) mmol/L Potassium (3.5-5.1) mmol/L Chloride (98-107) mmol/L Carbon Dioxide (21-32) mmol/L Anion Gap (7-13) mEq/L BUN (7-18) mg/dL Creatinine (0.55-1.02) mg/dL Est Cr Clr Drug Dosing mL/min Estimated GFR (MDRD) BUN/Creatinine Ratio (No establ ref range) Glucose (70-99) mg/dL Calcium (8.5-10.1) mg/dL Total Bilirubin (0.2-1.0) mg/dL AST (15-37) U/L ALT (14-59) U/L Alkaline Phosphatase (46-116) U/L Troponin I (0.000-0.056) ng/mL Total Protein (6.4-8.2) g/dL Albumin (3.4-5.0) g/dL Globulin Albumin/Globulin Ratio Urine Color Yellow (YELLOW) Urine Appearance Clear (CLEAR) Urine pH 7.0 (5.0-9.0) Ur Specific [place] 1.015 (1.005-1.030) Urine Protein Negative (NEGATIVE) Urine Glucose (UA) Negative (NEGATIVE) Urine Ketones Negative (NEGATIVE) Urine Occult Blood Negative (NEGATIVE) Urine Nitrite Negative (NEGATIVE) Urine Bilirubin Negative (NEGATIVE) Urine Urobilinogen 0.2 (0.2-1.0) mg/dL Ur Leukocyte Esterase Negative (NEGATIVE) Urine HCG, Qual Negative 03/05/21 Range/Units 14:08 WBC (5.0-10.0) 10^3/uL RBC (4.2-5.4) 10^6/uL Hgb (12.0-16.0) g/dL Hct (37.0-47.0) % MCV (80-100) fL MCH (27.0-34.0) pg MCHC (33.0-35.0) g/dL Plt Count (150-450) 10^3/uL Neut % (Auto) (42.2-75.2) % Lymph % (Auto) (20.5-50.1) % [place] % (Auto) (2-8) % Eos % (Auto) (1.0-3.0) % Baso % (Auto) (0.0-1.0) % Sodium 139 (136-145) mmol/L Potassium 3.6 (3.5-5.1) mmol/L Chloride 103 (98-107) mmol/L Carbon Dioxide 27 (21-32) mmol/L Anion Gap 12.6 (7-13) mEq/L BUN 12 (7-18) mg/dL Creatinine 0.72 (0.55-1.02) mg/dL Est Cr Clr Drug Dosing 124.67 mL/min Estimated GFR (MDRD) > 60 BUN/Creatinine Ratio 16.7 (No establ ref range) Glucose 94 (70-99) mg/dL Calcium 8.7 (8.5-10.1) mg/dL Total Bilirubin 0.5 (0.2-1.0) mg/dL AST 19 (15-37) U/L ALT 27 (14-59) U/L Alkaline Phosphatase 74 (46-116) U/L Troponin I < 0.017 (0.000-0.056) ng/mL Total Protein 6.8 (6.4-8.2) g/dL Albumin 3.7 (3.4-5.0) g/dL Globulin 3.1 Albumin/Globulin Ratio 1.2 Urine Color (YELLOW) Urine Appearance (CLEAR) Urine pH (5.0-9.0) Ur Specific [place] (1.005-1.030) Urine Protein (NEGATIVE) Urine Glucose (UA) (NEGATIVE) Urine Ketones (NEGATIVE) Urine Occult Blood (NEGATIVE) Urine Nitrite (NEGATIVE) Urine Bilirubin (NEGATIVE) Urine Urobilinogen (0.2-1.0) mg/dL Ur Leukocyte Esterase (NEGATIVE) Urine HCG, Qual Meds: Medications Discontinued Medications Generic Name Dose Route Start Last Admin Trade Name Pepper PRN Reason Stop Dose Admin Al Hydroxide/Mg Hydroxide 30 ml 03/05/21 15:12 03/05/21 15:20 Gi Cocktail Oral Solution 30 Ml PO 03/05/21 15:13 30 ml ONETIME ONE Administration - Radiology Interpretation Free Text/Narrative:: Chest x-ray: Negative exam. See rad report. Departure - Departure Time of Disposition: 15:36 Disposition: Home, Self-Care 01 Condition: Good Clinical Impression: Nonspecific chest pain Acid reflux Qualifiers: Esophagitis presence: without esophagitis Qualified Code(s): K21.9 - Gastro- esophageal reflux disease without esophagitis - Discharge Information Instructions: Food Choices for Gastroesophageal Reflux Disease, Adult, [id number], Nonspecific Chest Pain, Adult, [id number], Gastroesophageal Reflux Disease, Adult, [id number] Referrals: Chanda Peter NP [Primary Care Provider] - Forms: ED Department Discharge Additional Instructions: RX: Omeprazole as directed Follow up with your primary care facility if no improvement Sepsis Event Note (ED) - Evaluation Sepsis Screening Result: No Definite Risk I have read and agree with the documentation that has been completed regarding this visit. By signing this record, I attest that the documentation was completed in my physical presence and is an accurate record of the encounter.
== END 2021-03-05 15:43 | disposition home or self-care (01) ==
LOC: DL.ED 13:04
DX: K21.9 Gastro-esophageal reflux disease without esophagitis (principal)
CPT/HCPCS: 36415; 71045; 80053; 81003; 81025; 84484; 85025; 93005; 93010; 99284; 99285-25; A9270-GY

== ENCOUNTER 2022-06-26 21:47 | Emergency (ER) | payer BC ==
[2022-06-26 21:59] VITALS: BP 123/93; PULSE 97
[2022-06-26 22:43] LABS: ANION GAP 9.7 mEq/L (7-13)
== END 2022-06-26 23:41 | disposition home or self-care (01) ==
LOC: DL.ED 21:47
DX: R07.89 Other chest pain (principal); K21.9 Gastro-esophageal reflux disease without esophagitis
CPT/HCPCS: 36415; 80053; 82150; 83690; 84443; 84484; 85025; 85379; 93005; 93010; 99284; 99285